=== PATIENT | male | born 1965 | race Native Hawaiian/Other Pacific Islander ===

== ENCOUNTER 2017-11-30 17:05 | Emergency (ER) | payer OTHER ==
[~2017-11-30] VITALS: Ht 167.6 cm; Wt 95.3 kg
[2017-11-30 17:09] VITALS: TEMP 97.9
[2017-11-30 17:41] LABS: PLATELET COUNT 267 K/uL (142-355)
[2017-11-30 17:51] LABS: POTASSIUM 3.8 mmol/L (3.6-5.2)
[2017-11-30 18:56] VITALS: BP 159/80
== END 2017-11-30 18:58 | disposition home or self-care (01) ==
LOC: ED 17:05
DX: M10.9 Gout, unspecified (principal)
CPT/HCPCS: 36415; 80053; 84550; 85027; 96372; 99283; J1885